=== PATIENT | female | born 1970 | race Caucasian/White ===

== ENCOUNTER 2024-12-07 02:17 | Emergency (ER) | payer BC, SELFPAY ==
[2024-12-07 02:20] VITALS: BMI 22.4
[2024-12-07 02:30] VITALS: BP 137/75; PULSE 87; RESP 18; TEMP 37.1; O2SAT 98
--- NOTE | 2024-12-07 02:34 | PD.EDRME ---
Rapid Medical Screening Exam RME Arrival date/time: 12/07/24 02:17 This is a case of 54-year-old female with history of kidney stone came into the emergency room due to left flank pain associated with nausea vomiting persistence of the symptoms thus patient decided to start consult here in the emergency room Chief Complaint: Back Pain/Injury Time Seen by Provider: 12/07/24 02:32 Vital signs: Vital Signs Temperature 98.7 F 12/07/24 02:30 Pulse Rate 87 12/07/24 02:30 Respiratory Rate 18 12/07/24 02:30 Blood Pressure 137/75 H 12/07/24 02:30 Pulse Oximetry (%) 98 12/07/24 02:30 Oxygen Delivery Method Room Air 12/07/24 02:30
--- NOTE | 2024-12-07 02:56 | XR_ITS ---
Examination: CT abdomen and pelvis without contrast. Coronal 3-D reconstructions. Sagittal 2-D reconstructions. Date and time of exam:December 07, 2024, 0314 hrs. Indications: Left flank pain beginning today. CTDI: vol (mGy): 7.55 DLP: (mGycm): 367. Technique: Axial images of the abdomen have been obtained, 3 mm slice thickness Intravenous contrast material has not been administered. Low dose protocols were performed. One or more of the following dose reduction techniques were used; automated exposure control, adjustment of the mA and/or KV according to patient size, use of iterative reconstruction technique. Findings: No renal or ureteral calculi, no hydronephrosis Aorta normal size. No pancreatic mass. No visualized liver splenic lesion. Aorta normal size Normal appendix Moderate stool in the colon No diverticulitis No bladder mass or bladder calculi The osseous structures are intact. Impression: No renal or ureteral calculi, no hydronephrosis Normal appendix
[2024-12-07 03:39] LABS: Basophils # (Auto) 0.1 Thou/mm3 (0.0-0.2); Basophils % (Auto) 1 % (0-2.5); Eosinophils # (Auto) 0.1 Thou/mm3 (0.0-0.5); Eosinophils % (Auto) 2 % (0-10); Hematocrit 39.7 % (36.0-46.0); Hemoglobin 12.8 g/dL (12.0-16.0); Immature Granulocytes Auto 0.01 Thou/mm3 (0.00-0.00); Lymphocytes # (Auto) 2.5 Thou/mm3 (1.0-4.8); Lymphocytes % (Auto) 35 % (10-50); Mean Corpuscular HGB Conc 32.2 g/dl (31.0-37.0); Mean Corpuscular Hemoglobin 31.0 pg (25.0-35.0); Mean Corpuscular Volume 96 fL (80-100); Monocytes # (Auto) 0.5 Thou/mm3 (0.0-0.8); Monocytes % (Auto) 6 % (0-12); Neutrophils # (Auto) 4.1 Thou/mm3 (1.8-7.7); Neutrophils % (Auto) 57 % (37-80); Nucleated Red Blood Cell # 0.00 Thou/mm3 (0.00-0.00); Nucleated Red Blood Cell % 0 /100 WBC (0); Platelet Count 261 Thou/mm3 (140-440); RDW Standard Deviation 46.2 fL (36.4-46.3); Red Blood Count 4.13 Miln/mm3 (4.00-5.20); White Blood Count 7.3 Thou/mm3 (3.6-11.0)
[2024-12-07 04:05] LABS: Collection Type, Urine Clean Catch
--- NOTE | 2024-12-07 04:05 | PRELIM_ITS ---
CT scan of the abdomen and pelvis without intravenous contrast (axial sections with sagittal and coronal reformats) December 07, 2024 0314 hours Clinical History: Kidney stone Radiation Dose: Total exam DLP 367 mGy/cm Comparison: No prior study is available for comparison. Findings: The lung bases are clear. Gastric sleeve surgery changes are noted. The liver, gallbladder, pancreas, spleen, kidneys and adrenals are unremarkable on this noncontrast study. No evidence of bowel obstruction. A moderate amount of fecal material is present in the colon.The appendix is within normal limits (coronal images 33- 42/129). There is no mesenteric or retroperitoneal adenopathy. The urinary bladder is unremarkable. There is no free fluid or free air. The osseous structures are unremarkable. Impression: No evidence of renal/ureteric calculus or hydroureteronephrosis. Other findings as described above. Report Electronically Signed By: Kranthi De Dios 12/07/2024 4:04:49 AM [EST]
[2024-12-07 04:08] LABS: HCG Qualitative,Urine Negative
[2024-12-07 04:16] LABS: Bilirubin,Urine Negative (Negative); Blood,Urine Negative (Negative); Clarity,Urine Clear (Clear/Hazy); Color,Urine Colorless (Lt Yel-Yel); Glucose, Urine Negative (Negative); Ketones,Urine Negative (Negative); Leukocyte Esterase,Urine Negative (Negative); Nitrite,Urine Negative (Negative); PH,Urine 7.0 (5.0-7.0); Protein,Urine Negative (Neg - Trace); RBC,Urine < 1 /hpf (0-3); Specific Gravity,Urine 1.007 (1.001-1.035); Squamous Epithelial Cell,Urine 1 /hpf (0-5); Urobilinogen,Urine Negative mg/dL (0.0-1.0); WBC,Urine < 1 /hpf (0-5)
[2024-12-07 04:29] LABS: Alanine Aminotransferase 16 U/L (10-49); Albumin, Serum 4.2 gm/dL (3.5-5.0); Albumin/Globulin Ratio 1.8 (1.2-2.2); Alkaline Phosphatase 56 U/L (46-116); Anion Gap 8 (7-16); Aspartate Amino Transferase 22 U/L (0-34); BUN/Creatinine Ratio 17 Ratio (12-20); Bilirubin,Total 0.4 mg/dL (0.3-1.2); Blood Urea Nitrogen 10 mg/dL (9-23); Calcium 9.5 mg/dL (8.3-10.6); Calcium (Corrected) 9.5 mg/dL (8.5-10.1); Carbon Dioxide 30.5 mMol/L (20.0-31.0); Chloride 105 mMol/L (98-107); Creatinine (Component) 0.6 mg/dL (0.6-1.3); Estimated Creatinine Clearance 104.2 mL/min (>60); Globulin 2.3 gm/dL (2.3-3.5); Glucose 85 mg/dL (74-106); Osmolality,Calculated 282 (275-295); Potassium 3.9 mMol/L (3.4-5.1); Sodium 143 mMol/L (136-145); Total Protein 6.5 gm/dL (5.7-8.2); eGFR > 60 See Note
--- NOTE | 2024-12-07 04:35 | EDNOTE_ITS ---
ED Back Injury Pain RME/HPI General Chief Complaint: Back Pain/Injury Stated Complaint: LEFT LOWER BACK PAIN, FLANK PAIN Time Seen by Provider: 12/07/24 02:32 Arrival date/time: 12/07/24 02:17 This is a case of 54-year-old female with history of kidney stone came in in the emergency room due to left flank pain radiating to the left lower back with nausea vomiting for 1 day persistence of the symptoms this patient decided to sought consult here in the emergency room patient denies any constipation diarrhea or any urinary symptoms Limitations: no limitations RME / HPI RME / HPI Narrative: 12/07/24 02:17 This is a case of 54-year-old female with history of kidney stone came into the emergency room due to left flank pain associated with nausea vomiting persistence of the symptoms thus patient decided to start consult here in the emergency room Related Data Previous Rx's ?Medication ?Instructions ?Recorded cyclobenzaprine 10 mg tablet 10 mg PO BID PRN muscle s pasm #10 12/07/24 tabs hydrocodone 5 mg-acetaminophen 325 1 tab PO Q6H PRN pa in #12 tabs 12/07/24 mg tablet Allergies Allergy/AdvReac Type Severity Reaction Status Date / Time No Known Allergies Allergy Verified 12/07/24 02:19 Review of Systems Review of Systems Systems Reviewed: All systems reviewed, normal except as documented Constitutional Constitutional: Reports system reviewed and no additional complaints, except as documented, Denies chills and Denies fever(s) Cardiovascular Cardiovascular: Reports system reviewed and no additional complaints, except as documented and Reports as per HPI Respiratory Respiratory: Reports system reviewed and no additional complaints, except as documented and Reports as per HPI Gastrointestinal Gastrointestinal: Reports system reviewed and no additional complaints, except as documented, Reports as per HPI, Reports abdominal pain, Denies constipation, Denies diarrhea, Denies loose stools, Reports nausea and Reports vomiting Genitourinary Genitourinary: Reports system reviewed and no additional complaints, except as documented, Reports as per HPI, Denies abnormal menses, Denies abnormal vaginal bleeding, Denies amenorrhea, Denies difficulty voiding, Denies dysmenorrhea, Denies dyspareunia, Denies dysuria, Denies flank pain, Denies hematuria, Denies menorrhagia, Denies pelvic pain, Denies urinary frequency, Denies urinary incontinence, Denies urinary hesitancy, Denies urinary urgency, Denies vaginal discharge, Denies vaginal dryness, Denies vaginal odor and Denies vaginal pruritus Neurologic Neurologic: Reports system reviewed and no additional complaints, except as documented and Reports as per HPI Past Medical History Social History SMOKING STATUS: Never smoker ED Exam General Limitations: Present no limitations General appearance: Present alert, in no apparent distress and other (Patient is awake alert oriented not in distress nontoxic looking well-hydrated well- nourished) Head Head exam: Present atraumatic, normocephalic and normal inspection Eye Eye exam: Present normal appearance, PERRL and EOMI ENT ENT exam: Present normal exam, normal oropharynx and mucous membranes moist Neck Neck exam: Present normal inspection, full ROM and trachea midline; Absent tenderness, meningismus, lymphadenopathy or thyromegaly Chest Chest inspection: Present normal inspection and symmetric chest wall rise; Absent tenderness Respiratory Respiratory exam: Present normal lung sounds bilaterally; Absent respiratory distress, wheezes, stridor, accessory muscle use or prolonged expiratory phase Cardiovascular Cardiovascular exam: Present regular rate, normal rhythm and normal heart sounds; Absent bradycardia, tachycardia, irregular rhythm or diastolic murmur Abdominal Exam Abdominal exam: Present soft, tenderness (Mild tenderness in the left flank but no CVA tenderness) and normal bowel sounds; Absent distention, guarding, rebound, rigidity, diminished bowel sounds, hyperactive bowel sounds, hypoactive bowel sounds, organomegaly, psoas sign, obturator sign, Duvall's sign, Rovsing's sign or tenderness at McBurney's Point Extremities Exam Extremities exam: Present normal inspection and full ROM Back Exam Back exam: Present normal inspection, full ROM, tenderness (Mild tenderness on the L1-L5 no paraspinal no paravertebral tenderness ROM intact but with pain pulses were full and equal capillary refill less than 2 seconds sensory intact) and muscle spasm; Absent CVA tenderness (R), CVA tenderness (L), paraspinal tenderness, vertebral tenderness, rashes, sciatic notch tenderness (R), sciatic notch tenderness (L), straight leg raise (R) or straight leg raise (L) Neurological Exam Neurological exam: Present alert, oriented X3, CN II-XII intact, normal gait and reflexes normal; Absent motor sensory deficit Psychiatric Psychiatric exam: Present normal affect and normal mood Skin Skin exam: Present warm, dry, intact and normal color Course Quality Measures none Orders Category Date Time Status CT abdomen pelvis wo con Stat Exams 12/07/24 02:56 Taken CBC Stat Lab 12/07/24 03:24 Completed Comprehensive Metabolic Panel Stat Lab 12/07/24 03:24 Results HCG Qualitative,Urine Stat Lab 12/07/24 04:00 Completed Lipase Stat Lab 12/07/24 03:24 Results Urinalysis Stat Lab 12/07/24 04:00 Completed Dexamethasone Inj [Decadron Inj] Med 12/07/24 04:27 Discontinued 10 mg IM X1 ONE HYDROcodone*/APAP 5/325 [Fitzgerald 5/325] Med 12/07/24 04:27 Discontinued 1 tab PO X1 ONE Ketorolac Inj [Toradol Inj] Med 12/07/24 04:27 Discontinued 30 mg IM X1 ONE Ondansetron Odt [Zofran Odt] Med 12/07/24 04:27 Discontinued 4 mg PO X1 ONE Vital Signs Vital signs: Vital Signs Temperature 98.7 F 12/07/24 02:30 Pulse Rate 87 12/07/24 02:30 Respiratory Rate 18 12/07/24 02:30 Blood Pressure 137/75 H 12/07/24 02:30 Pulse Oximetry (%) 98 12/07/24 02:30 Oxygen Delivery Method Room Air 12/07/24 02:30 Oxygen saturation is 98% in room air Back Pain / Injury MDM Narrative MDM Narrative:: This is a case of 54-year-old female with history of kidney stone came in in the emergency room due to left flank pain radiating to the left lower back with nausea vomiting for 1 day persistence of the symptoms this patient decided to sought consult here in the emergency room patient denies any constipation diarrhea or any urinary symptoms physical examination patient is awake alert oriented not in distress nontoxic looking well-hydrated well-nourished patient abdominal exam is benign nonsurgical no guarding no rebound no rigidity mild tenderness on the left flank but no tenderness on the abdominal area negative psoas negative straight or negative Rovsing's no McBurney's negative Duvall sign negative CVA tenderness patient back exam noted to be mild to moderate tenderness on the lumbar area no crepitation no deformity no redness no swelling no cellulitis no paraspinal no paravertebral tenderness ROM intact no CVA tenderness mild muscle spasm neurovascular intact blood test showed no leukocytosis no anemia kidney and liver function is normal no electrolyte imbalance patient urinalysis is normal CT scan showed no stone at this point patient will be discharged as back muscle spasm and left flank pain patient will follow-up with PCP in 2 days for reevaluation patient was given Toradol Fitzgerald and dexamethasone for back muscle spasm which patient condition improved and resolved patient will follow-up with PCP in 2 days for reevaluation and for any worsening symptoms or any emergent concerns such as numbness weakness tingling sensation incontinence to urine or stool she was advised to return in the emergency room immediately or call [phone] at the time of exam no signs and symptoms sepsis dehydration acute abdomen nor cauda equina Patient was discharged with comfortable condition walking with stable gait. Patient verbalized no further complains explained diagnosis and answered patient question. Patient is comfortable with the proposed management plan including the need to follow up with his/her primary care physician and any specialist if applicable Discussed patient for any urgent condition or worsening sx, He/She needed to go to emergency room immediately or call 911. Patient acknowledge the responsibility to follow up as instructed and to monitor her/his symptoms. For any persistence of the symptoms for more than 3-5 days return precaution advised. Discussed the result of the test and was given printed discharge instruction Patient data External records reviewed:: [facility] previous records Clinical information provided by:: patient Social determinants that could affect healthcare access:: none Patient has the following chronic illnesses:: None How is presenting disease/condition affected by chronic disease/condition?: no chronic disease Evaluation data The following diagnostics were reviewed and interpreted by me:: lab results and radiology exam(s) Lab and/or radiology exams considered but not ordered:: Reviewed Interpretation Summary: Reviewed Medications / Prescriptions Medications or Prescriptions considered but not ordered:: Given Medication administrations:: Medication Administration History Discontinued Medications Hydrocodone Bitart/Acetaminophen (Hydrocodone/Apap 5/325 Tablet) 1 tab PO X1 ONE Stop: 12/07/24 04:28 Dexamethasone Sodium Phosphate (Dexamethasone Sod Phos Inj 10 Mg/Ml Vial) 10 mg IM X1 ONE Stop: 12/07/24 04:28 Ketorolac Tromethamine (Ketorolac Inj 60 Mg/2 Ml Vial) 30 mg IM X1 ONE Stop: 12/07/24 04:28 Ondansetron HCl (Ondansetron Odt 4 Mg Tabrap) 4 mg PO X1 ONE; Protocol Stop: 12/07/24 04:28 Given Consultations Consultation(s) initiated? (list below): No Diagnosis Differential diagnosis back pain/injury: lumbar radiculopathy, sciatica, strain of lumbar region, pyelonephritis and thoracic back pain Most likely diagnosis given after review of the tests above:: Back muscle spasm left flank pain Admission Indicated Admission indicated?: not indicated Explain why admission is indicated or not indicated:: Not indicated Admission Request Was there a request for admission?: No Admission Attestation Admission request attestation: Not indicated Disposition Plan Disposition Plan: Discharge Discharge Attestation Discharge Attestation: The patient and all family members were given an opportunity to ask questions and understood the discharge instructions. Discharge instructions specifically effects, indications for sooner follow up or return to the emergency department, and the expected course of current diagnosis. Patient condition: Stable Discharge Plan Plan Patient Disposition: HOME (Self Care) Patient condition on transfer: Stable Prescriptions/Referrals Prescriptions/Med Rec: New hydrocodone-acetaminophen 5-325 mg tablet 1 tab PO Q6H MDD max 4 tabs per day PRN (Reason: pain) Qty: 12 0RF cyclobenzaprine 10 mg tablet 10 mg PO BID PRN (Reason: muscle spasm) Qty: 10 0RF Referrals: No Primary/Family,Physician [Primary Care Provider] - In 1 week Problem List Clinical Impression: Left flank pain, Back muscle spasm Patient/Caregiver Discharge Instructions Education Materials: ED Back Spasm, No Trauma, ED Flank Pain, Uncertain Cause Additional Instructions: Follow-up with your primary care physician in 2 days for reevaluation worsening symptoms or any emergent concern call 911 or go to the nearest emergency room take your medication as directed ice pack and warm compress as needed for pain for any numbness weakness tingling sensation incontinence to urine or stool call 911 or go to the nearest emergency room Print Language: Kinyarwanda Stand Alone Forms: Maria G Award Info., Patient Portal Info Letter PA/FLOR Supervising Physician PA/FLOR Supervising Physician: Dr. Godwin
[2024-12-07] MEDS: KETOROLAC INJ 60 MG/2 ML VIAL 30 MG IM (04:40)
[2024-12-07] MEDS: ONDANSETRON ODT 4 MG TABRAP PO (04:41)
[2024-12-07] MEDS: DEXAMETHASONE SOD PHOS INJ 10 MG/ML VIAL IM (04:41)
[2024-12-07] MEDS: HYDROcodone/APAP 5/325 TABLET 1 TAB PO (04:41)
[2024-12-07 22:05] LABS: Lipase 41 U/L (12-53)
== END 2024-12-07 04:48 | disposition home or self-care (01) ==
PROVIDERS: Nurse Practitioner Family; Emergency Provider Emergency Medicine
DX: M54.50 Low back pain, unspecified (principal); M62.838 Other muscle spasm
CPT/HCPCS: 36415; 74176; 80053; 81001; 81025; 83690; 85025; 96372; 99283; J1100; J1885; Q0162; A9270